=== PATIENT | male | born 1975 | race Caucasian/White ===

== ENCOUNTER 2016-12-28 16:50 | Emergency (ER) | payer OTHER ==
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
[2016-12-28 20:52] VITALS: BP 133/76; PULSE 72; RESP 16; TEMP 98.1; O2SAT 97
[2016-12-28] MEDS ORDERED: OXYCODONE/APAP 5/325 TAB ONE (21:03)
[2016-12-28] MEDS ORDERED: OXYCODONE/APAP 5/325 TAB PO ONE (21:05)
== END 2016-12-28 21:12 | disposition short-term general hospital (02) ==
DX: M62.81 Muscle weakness (generalized) (principal); T79.A22A Traumatic compartment syndrome of left lower extremity, initial encounter; Z87.81 Personal history of (healed) traumatic fracture